=== PATIENT | female | born 1985 | race American Indian/Alaskan Native ===

== ENCOUNTER 2018-08-18 10:04 | Emergency (ER) | payer SELFPAY ==
[2018-08-18 10:18] VITALS: BP 114/80
--- NOTE | 2018-08-18 11:16 | Emergency Department Report ---
ED General Adult HPI - General Chief complaint: Adult Asthma Stated complaint: JULIANO Time Seen by Provider: 08/18/18 10:55 Source: patient Mode of arrival: Ambulatory Limitations: No Limitations - History of Present Illness Initial comments: Patient presents to emergency department for asthma medication refill. The patient recently moved from [facility] 3 months ago and has not found a physician to follow with here in [place]. Patient states that she was taking Singulair, prednisone, Proair, and Advair. Patient has no other complaints. -: Gradual Radiation: non-radiation Severity scale (0 -10): 0 Improves with: none Worsens with: none Associated Symptoms: denies other symptoms Treatments Prior to Arrival: none - Related Data Previous Rx's Medication Instructions Recorded Last Taken Type ALBUTEROL Inhaler (OR & NICU) 2 puff IH QID PRN #1 inhalation 08/18/18 Unknown Rx [Proair] Montelukast (Nf) [Singulair (Nf)] 5 mg PO DAILY #20 tab.chew 08/18/18 Unknown Rx predniSONE [Deltasone] 5 mg PO .TAPER #21 tab 08/18/18 Unknown Rx Allergies Allergy/AdvReac Type Severity Reaction Status Date / Time ketchup Allergy Unknown Verified 08/18/18 10:16 ED Review of Systems ROS: Stated complaint: JULIANO Other details as noted in HPI Comment: All other systems reviewed and negative Constitutional: denies: chills, fever Eyes: denies: eye pain, eye discharge, vision change ENT: denies: ear pain, throat pain Respiratory: denies: cough, shortness of breath, wheezing Cardiovascular: denies: chest pain, palpitations Endocrine: no symptoms reported Gastrointestinal: denies: abdominal pain, nausea, diarrhea Genitourinary: denies: urgency, dysuria, discharge Musculoskeletal: denies: back pain, joint swelling, arthralgia Skin: denies: rash, lesions Neurological: denies: headache, weakness, paresthesias Psychiatric: denies: anxiety, depression Hematological/Lymphatic: denies: easy bleeding, easy bruising ED Past Medical Hx - Past Medical History Hx Asthma: Yes - Surgical History Additional Surgical History: c/s - Social History Smoking Status: Never Smoker Substance Use Type: None - Medications Home Medications: Home Medications Medication Instructions Recorded Confirmed Last Taken Type ALBUTEROL Inhaler (OR & NICU) 2 puff IH QID PRN #1 inhalation 08/18/18 Unknown Rx [Proair] Montelukast (Nf) [Singulair (Nf)] 5 mg PO DAILY #20 tab.chew 08/18/18 Unknown Rx predniSONE [Deltasone] 5 mg PO .TAPER #21 tab 08/18/18 Unknown Rx ED Physical Exam - General Limitations: No Limitations General appearance: alert, in no apparent distress - Head Head exam: Present: atraumatic, normocephalic - Eye Eye exam: Present: normal appearance - ENT ENT exam: Present: mucous membranes moist - Neck Neck exam: Present: normal inspection - Respiratory Respiratory exam: Present: normal lung sounds bilaterally. Absent: respiratory distress, wheezes, rales, rhonchi - Cardiovascular Cardiovascular Exam: Present: regular rate, normal rhythm. Absent: systolic murmur, diastolic murmur, rubs, gallop - GI/Abdominal GI/Abdominal exam: Present: soft, normal bowel sounds - Extremities Exam Extremities exam: Present: normal inspection - Back Exam Back exam: Present: normal inspection - Neurological Exam Neurological exam: Present: alert, oriented X3, CN II-XII intact. Absent: motor sensory deficit - Psychiatric Psychiatric exam: Present: normal affect, normal mood - Skin Skin exam: Present: warm, dry, intact, normal color. Absent: rash ED Course Vital Signs 08/18/18 10:16 Temperature 98.8 F Pulse Rate 78 Respiratory 16 Rate Blood Pressure 114/80 O2 Sat by Pulse 98 Oximetry ED Medical Decision Making - Medical Decision Making Discussed plan of care with patient Critical care attestation.: If time is entered above; I have spent that time in minutes in the direct care of this critically ill patient, excluding procedure time. ED Disposition Clinical Impression: Asthma Disposition: DC-01 TO HOME OR SELFCARE Is pt being admited?: No Does the pt Need Aspirin: No Condition: Stable Instructions: Asthma (ED) Additional Instructions: RETURN IF WORSE Prescriptions: ALBUTEROL Inhaler (OR & NICU) [Proair] 2 puff IH QID PRN #1 inhalation PRN Reason: Shortness Of Breath Montelukast (Nf) [Singulair (Nf)] 5 mg PO DAILY #20 tab.chew predniSONE [Deltasone] 5 mg PO .TAPER #21 tab Referrals: PRIMARY CARE, [Primary Care Provider] - 3-5 Days [facility] [Provider Group] - 3-5 Days [facility] [Outside] - 3-5 Days [facility] [Provider Group] - 3-5 Days Time of Disposition: 11:14
== END 2018-08-18 11:22 | disposition home or self-care (01) ==
LOC: ED 10:04
DX: J45.909 Unspecified asthma, uncomplicated (principal); Z76.0 Encounter for issue of repeat prescription; Z91.09 Other allergy status, other than to drugs and biological substances
CPT/HCPCS: 99282

== ENCOUNTER 2019-03-28 06:29 | Emergency (ER) | payer OTHER ==
[2019-03-28 07:32] LABS: Basophils % (Auto) 1.1 % (0.0-1.8); Eosinophils # (Auto) 0.2 K/mm3 (0.0-0.4); Eosinophils % (Auto) 4.8 % (0.0-4.3); Hematocrit 40.1 % (30.3-42.9); Hemoglobin 13.5 gm/dl (10.1-14.3); Lymphocytes % (Auto) 50.4 % (13.4-35.0); Mean Corpuscular HGB Conc 34 % (30-34); Mean Corpuscular Volume 94 fl (79-97); Monocytes # (Auto) 0.3 K/mm3 (0.0-0.8); Monocytes % (Auto) 7.5 % (0.0-7.3); Platelet Count 155 K/mm3 (140-440); Red Blood Count 4.28 M/mm3 (3.65-5.03); Red Cell Distribution Width 14.4 % (13.2-15.2)
[2019-03-28 07:46] LABS: Alanine Aminotransferase 5 units/L (7-56); Albumin 4.1 g/dL (3.9-5); BUN/Creatinine Ratio 13; Blood Urea Nitrogen 12 mg/dL (7-17); Calcium 8.6 mg/dL (8.4-10.2); Hemolysis Index 5
[2019-03-28 07:59] LABS: Bilirubin,Urine NEG (Negative); Blood,Urine NEG (Negative); Color,Urine Yellow (Yellow); Mucus,Urine 3+ /HPF; Protein,Urine <15 mg/dL mg/dL (Negative); Urobilinogen,Urine < 2.0 mg/dL (<2.0)
[2019-03-28] MEDS ORDERED: NACL 0.9% 1000 ML 1,000 ML IV ONE (08:43)
[2019-03-28] MEDS ORDERED: ZOFRAN IV ONE (08:44)
--- NOTE | 2019-03-28 08:51 | Emergency Department Report ---
HPI - General Chief Complaint: Abdominal Pain Time Seen by Provider: 03/28/19 08:08 - HPI HPI: 33-year-old -[place] female presents to the emergency department with a 2 day history of some mid upper abdominal pain that is associated with nausea, v omiting and diarrhea. Patient has a past medical history of asthma. She has not taken anything for her symptoms prior to presentation. She denies any fever, vaginal bleeding or discharge, dysuria. She does not have a primary care physician. No recent travel or sick contacts at home. ED Past Medical Hx - Past Medical History Previous Medical History?: Yes Hx Asthma: Yes - Surgical History Past Surgical History?: Yes Additional Surgical History: c/s x2 - Social History Smoking Status: Never Smoker Substance Use Type: None - Medications Home Medications: Home Medications Medication Instructions Recorded Confirmed Last Taken Type ALBUTEROL Inhaler (OR & NICU) 2 puff IH QID PRN #1 inhalation 08/18/18 Unknown Rx [Proair] Montelukast (Nf) [Singulair (Nf)] 5 mg PO DAILY #20 tab.chew 08/18/18 Unknown Rx predniSONE [Deltasone] 5 mg PO .TAPER #21 tab 08/18/18 Unknown Rx Amoxicillin/Potassium Clav 1 each PO BID #20 tablet 09/29/18 Unknown Rx [Augmentin 875-125 Tablet] Fluticasone [Flonase] 1 spray NS QDAY #1 bottle 09/29/18 Unknown Rx Ibuprofen [Ibuprofen 800] 800 mg PO TID PRN #30 tablet 09/29/18 Unknown Rx Ondansetron [Zofran Odt] 4 mg PO Q8HR PRN #12 tab.rapdis 03/28/19 Unknown Rx ED Review of Systems ROS: Stated complaint: ABDOMINAL PAIN VOMITTING Other details as noted in HPI Comment: All other systems reviewed and negative Constitutional: denies: chills, fever Eyes: denies: eye pain, vision change ENT: denies: ear pain, throat pain Respiratory: denies: cough Cardiovascular: denies: chest pain, palpitations Gastrointestinal: abdominal pain, nausea, vomiting, diarrhea Genitourinary: denies: dysuria, discharge Musculoskeletal: denies: back pain, arthralgia Skin: denies: rash, lesions Neurological: denies: headache, weakness Physical Exam - Physical Exam Vital Signs: Vital Signs 03/28/19 06:32 Temperature 98.0 F Pulse Rate 72 Respiratory 18 Rate Blood Pressure 96/65 O2 Sat by Pulse 99 Oximetry Physical Exam: GENERAL: The patient is well-developed well-nourished. HENT: Normocephalic. Atraumatic. Patient has moist mucous membranes. EYES: Extraocular motions are intact. Pupils equal reactive to light bilater ally. NECK: Supple. Trachea is midline. CHEST/LUNGS: Clear to auscultation. There is no respiratory distress noted. HEART/CARDIOVASCULAR: Regular. There is no tachycardia. There is no murmur. ABDOMEN: Abdomen is soft. There is some left mid upper abdominal tenderness to palpation. No guarding. Patient has normal bowel sounds. There is no abdominal distention. SKIN: Skin is warm and dry. NEURO: The patient is awake, alert, and oriented. The patient is cooperative. The patient has no focal neurologic deficits. The patient has normal speech. MUSCULOSKELETAL: There is no tenderness or deformity. There is no evidence of acute injury. ED Course Vital Signs 03/28/19 06:32 Temperature 98.0 F Pulse Rate 72 Respiratory 18 Rate Blood Pressure 96/65 O2 Sat by Pulse 99 Oximetry ED Medical Decision Making - Lab Data Result diagrams: 03/28/19 07:16 03/28/19 07:16 - Radiology Data Radiology results: image reviewed interpreted by me: Abdominal x-ray shows nonspecific nonobstructive bowel gas and some increased stool volume. - Medical Decision Making This patient presents with a few days of some left-sided middle to upper abdominal pain. Labs have been unremarkable including CBC, metabolic panel, urinalysis and the patient is not . Abdominal x-ray shows some nonspecific nonobstructive bowel gas. Patient has been given some IV fluid resuscitation and a dose of Zofran. She was reevaluated multiple times over multiple hours and is feeling improved. There is been no further nausea or vomiting and her abdominal pain has almost completely resolved. She was able to pass an oral challenge prior to discharge. She'll be discharged home with a referral for primary care. She will return to the ER with any worsening of her symptoms or any acute distress. Vital signs stable throughout her ED course. - Differential Diagnosis pancreatitis, UTI, pyelonephritis, gastritis Critical Care Time: No Critical care attestation.: If time is entered above; I have spent that time in minutes in the direct care of this critically ill patient, excluding procedure time. ED Disposition Clinical Impression: Abdominal pain Qualifiers: Abdominal location: unspecified location Qualified Code(s): R10.9 - Unspecified abdominal pain Nausea & vomiting Qualifiers: Vomiting type: unspecified Vomiting Intractability: non-intractable Qualified Code(s): R11.2 - Nausea with vomiting, unspecified Disposition: TO HOME OR SELFCARE Is pt being admited?: No Condition: Stable Instructions: Acute Nausea and Vomiting (ED), Abdominal Pain (ED) Additional Instructions: Please follow up with a primary care physician in the next few days. Return to the emergency Department with any worsening of your symptoms or any acute distress. Prescriptions: Ondansetron [Zofran Odt] 4 mg PO Q8HR PRN #12 tab.rapdis PRN Reason: Nausea Referrals: KAYDEN BRADLEY MD [Staff Physician] - 2-3 Days [facility] [Outside] - 2-3 Days Forms: Work/School Release Form(ED) Time of Disposition: 10:57
--- NOTE | 2019-03-28 09:13 | XRay Report ---
ABDOMEN, 2 views: History: Abdominal pain. There is moderate stool throughout the length of the colon. There are a few prominent loops of small bowel in the left upper quadrant but no convincing obstructive pattern. No free air is identified on the upright view. No pathologic calcifications. Essure devices are noted in the pelvis. The visualized lung bases are clear. IMPRESSION: Mild constipation.
[2019-03-28 11:07] VITALS: BP 99/60
== END 2019-03-28 11:06 | disposition home or self-care (01) ==
LOC: ED 06:29
DX: R10.10 Upper abdominal pain, unspecified (principal); R11.2 Nausea with vomiting, unspecified; R19.7 Diarrhea, unspecified; J45.909 Unspecified asthma, uncomplicated; Z98.890 Other specified postprocedural states; Z91.018 Allergy to other foods
CPT/HCPCS: 36415; 74019; 80053; 81001; 84703; 85025; 96361; 96374; 99284; J2405; J7030